=== PATIENT | female | born 1960 | race Caucasian/White ===

== ENCOUNTER 2017-03-13 15:17 | Emergency (ER) | payer OTHER ==
[~2017-03-13] VITALS: Ht 162.6 cm; Wt 51.0 kg
[2017-03-13 15:18] VITALS: BP 95/51; PULSE 79; RESP 18; TEMP 97.8; O2SAT 97
[2017-03-13] MEDS ORDERED: LEVO.075 PO (15:59)
--- NOTE | 2017-03-13 16:10 | PD ---
HPI Chief Complaint: GI Complaint Time Seen by Provider: 16:07 Travel History International Travel<30 days: No Contact w/Intl Traveler<30days: No Traveled to known affect area: No History of Present Illness HPI 56-year-old female patient with history of hypothyroidism, presents to the ER today for 2 days history of severe diarrhea, abdominal cramping pains, followed by red blood in the stools. She denies any black stools, vomiting, fevers, or other symptoms. She is not sure whether she ate something bad. She denies any recent antibiotic use or recent travel. She does not know any sick contacts. She says that she has gone at least 60 times today. Modifying Factors: None Associated Signs & Symptoms: Diarrhea, blood in the stools, abdominal cramping pains Risk Factors: None PFSH Past Medical History Thyroid Disease: Yes Tetanus Vaccination: > 5 Years Social History Alcohol Use: Yes Tobacco Use: No Substance Use: No Allergies-Medications (Allergen,Severity, Reaction): Coded Allergies: scopolamine (Verified Allergy, Severe, dizzy, 03/13/17) sulfamethoxazole (Verified Allergy, Severe, rash, 03/13/17) tetanus immune globulin (Verified Allergy, Severe, edema, 03/13/17) trimethoprim (Verified Allergy, Severe, rash, 03/13/17) Reported Meds & Prescriptions Reported Meds & Active Scripts Active Reported Synthroid (Levothyroxine Sodium) 75 Mcg Tab 75 Mcg PO DAILY Review of Systems Except as stated in HPI: all other systems reviewed are Neg Physical Exam Narrative GENERAL: Well-developed middle age female patient currently in mild distress. Awake and oriented 3. SKIN: Focused skin assessment warm/dry. HEAD: Atraumatic. Normocephalic. EYES: Pupils equal and round. No scleral icterus. No injection or drainage. ENT: No nasal bleeding or discharge. Mucous membranes pink and moist. NECK: Trachea midline. No JVD. CARDIOVASCULAR: Regular rate and rhythm. No murmur appreciated. RESPIRATORY: No accessory muscle use. Clear to auscultation. Breath sounds equal bilaterally. GASTROINTESTINAL: Abdomen soft, non-tender, nondistended. Hepatic and splenic margins not palpable. RECTAL EXAM: No masses or tenderness, stool is brown. Trace Hemoccult-positive. MUSCULOSKELETAL: No obvious deformities. No clubbing. No cyanosis. No edema. NEUROLOGICAL: Awake and alert. No obvious cranial nerve deficits. Motor grossly within normal limits. Normal speech. PSYCHIATRIC: Appropriate mood and affect; insight and judgment normal. Data Data Last Documented VS Vital Signs Date Time Temp Pulse Resp B/P (MAP) Pulse Ox O2 Delivery O2 Flow Rate FiO2 03/13/17 18:32 80 20 90/51 (64) 03/13/17 15:18 97.8 97 Room Air Orders Orders Complete Blood Count With Diff (03/13/17 16:07) Comprehensive Metabolic Panel (03/13/17 16:07) Lipase (03/13/17 16:07) Prothrombin Time / Inr (Pt) (03/13/17 16:07) Act Partial Throm Time (Ptt) (03/13/17 16:07) Type And Screen (03/13/17 16:07) Ecg Monitoring (03/13/17 16:07) Iv Access Insert/Monitor (03/13/17 16:07) Oximetry (03/13/17 16:07) Pantoprazole Inj (Protonix Inj) (03/13/17 16:15) Sodium Chloride 0.9% Flush (Ns Flush) (03/13/17 16:15) Sodium Chlor 0.9% 1000 Ml Inj (Ns 1000 M (03/13/17 16:30) Stool Wbc (Leukocytes) (03/13/17 17:20) Enteric Path (Stool) (03/13/17 17:20) Urinalysis - C+S If Indicated (03/13/17 17:42) Labs Laboratory Tests Test 03/13/17 16:00 03/13/17 17:50 White Blood Count 7.4 TH/MM3 Red Blood Count 4.69 MIL/MM3 Hemoglobin 14.3 GM/DL Hematocrit 42.8 % Mean Corpuscular Volume 91.1 FL Mean Corpuscular Hemoglobin 30.4 PG Mean Corpuscular Hemoglobin Concent 33.4 % Red Cell Distribution Width 13.5 % Platelet Count 214 TH/MM3 Mean Platelet Volume 8.4 FL Neutrophils (%) (Auto) 92.7 % Lymphocytes (%) (Auto) 3.4 % Monocytes (%) (Auto) 3.7 % Eosinophils (%) (Auto) 0.1 % Basophils (%) (Auto) 0.1 % Neutrophils # (Auto) 6.8 TH/MM3 Lymphocytes # (Auto) 0.2 TH/MM3 Monocytes # (Auto) 0.3 TH/MM3 Eosinophils # (Auto) 0.0 TH/MM3 Basophils # (Auto) 0.0 TH/MM3 CBC Comment DIFF FINAL Differential Comment Prothrombin Time 10.3 SEC Prothromb Time International Ratio 0.9 RATIO Activated Partial Thromboplast Time 25.4 SEC Blood Urea Nitrogen 15 MG/DL Creatinine 0.67 MG/DL Random Glucose 132 MG/DL Total Protein 7.5 GM/DL Albumin 4.2 GM/DL Calcium Level 9.2 MG/DL Alkaline Phosphatase 104 U/L Aspartate Amino Transf (AST/SGOT) 14 U/L Alanine Aminotransferase (ALT/SGPT) 22 U/L Total Bilirubin 0.5 MG/DL Sodium Level 138 MEQ/L Potassium Level 3.9 MEQ/L Chloride Level 105 MEQ/L Carbon Dioxide Level 25.1 MEQ/L Anion Gap 8 MEQ/L Estimat Glomerular Filtration Rate 90 ML/MIN Lipase 112 U/L Urine Color YELLOW Urine Turbidity HAZY Urine pH 5.5 Urine Specific [place] 1.024 Urine Protein 100 mg/dL Urine Glucose (UA) NEG mg/dL Urine Ketones 40 mg/dL Urine Occult Blood TRACE Urine Nitrite NEG Urine Bilirubin NEG Urine Urobilinogen LESS THAN 2.0 MG/DL Urine Leukocyte Esterase NEG Urine RBC 1 /hpf Urine WBC 3 /hpf Urine Mucus MANY /lpf Microscopic Urinalysis Comment CULT NOT INDICATED MDM Medical Decision Making Medical Screen Exam Complete: Yes Emergency Medical Condition: Yes Medical Record Reviewed: Yes Interpretation(s) Laboratory Tests Test 03/13/17 16:00 03/13/17 17:50 Neutrophils (%) (Auto) 92.7 % (16.0-70.0) Lymphocytes (%) (Auto) 3.4 % (9.0-44.0) Lymphocytes # (Auto) 0.2 TH/MM3 (1.0-4.8) Random Glucose 132 MG/DL (74-106) Aspartate Amino Transf (AST/SGOT) 14 U/L (15-37) Urine Turbidity HAZY (CLEAR) Urine Protein 100 mg/dL (NEG-TRACE) Urine Ketones 40 mg/dL (NEG) Urine Occult Blood TRACE (NEG) Urine Mucus MANY /lpf (OCC) Differential Diagnosis Diarrhea, blood in the stools: Rule out dehydration versus metabolic issues versus sepsis versus GI bleed versus colitis Narrative Course There is a trace amount of blood in the stool. Abdomen is benign and I do not suspect an acute intra-abdominal process. Her lab work did not indicate significant anemia or significant dehydration or metabolic issues. Vital signs are stable in the ER. I suspect that she has a gastroenteritis that has caused irritation and bleeding. However, other underlying acute processes causing bleeding cannot be ruled out. At this point, my plan would be to release her with close follow-up to GI doctor. We will give her Imodium. Return for any worsening in bleeding, pain, diarrhea, or new symptoms as needed. The plan has discussed with her and she states understanding. [facility] Point of Care Internal Pos. & Neg. Controls: Passed Fecal Specimen Occult Blood: Positive Diagnosis Primary Impression: Gastroenteritis Additional Impression: Gastrointestinal bleeding Med/Other Pt SpecificInfo: Prescription(s) given Scripts Loperamide (Imodium A-D) 2 Mg Capsule 2 MG PO DIRECTED Y for DIARRHEA, #20 CAP 0 Refills One capsule after each loose stool. Not to exceed 8 tablets per day. Prov: Belkys Escobar MD 03/13/17 Ondansetron Odt (Zofran Odt) 4 Mg Tab 4 MG SL Q6HR Y for Nausea/Vomiting, #7 TAB 0 Refills Prov: Belkys Escobar MD 03/13/17 Disposition: 01 DISCHARGE HOME Condition: Stable Belkys Escobar MD Mar 13, 2017 16:10
[2017-03-13] MEDS ORDERED: SODIUM CHLORIDE 0.9% FLUSH 10 ML FLUSH IVF PRN (16:15)
[2017-03-13] MEDS ORDERED: PANTOPRAZOLE SODIUM 40 MG VIAL IVP ONE (16:15)
[2017-03-13] MEDS ORDERED: SODIUM CHLOR 0.9% 1000 ML INJ 1,000 ML IV ONE (16:30)
[2017-03-13 16:35] LABS: AUTOMATED NEUTROPHIL # 6.8 TH/MM3 (1.8-7.7); BASOPHIL % 0.1 % (0.0-2.0); EOSINOPHIL % 0.1 % (0.0-4.0); HEMATOCRIT 42.8 % (35.0-46.0); HEMO FLAGS DIFF FINAL; LYMPH % 3.4 % (9.0-44.0); LYMPHOCYTE # 0.2 TH/MM3 (1.0-4.8); MEAN CELL VOLUME 91.1 FL (80.0-100.0); MEAN CORPUSCULAR HEMOGLOBIN 30.4 PG (27.0-34.0); MEAN CORPUSCULAR HGB CONC 33.4 % (32.0-36.0); MONO % 3.7 % (0.0-8.0); NEUT % 92.7 % (16.0-70.0); PLATELET COUNT 214 TH/MM3 (150-450); RED BLOOD COUNT 4.69 MIL/MM3 (4.00-5.30); RED CELL DISTRIBUTION WIDTH 13.5 % (11.6-17.2); WHITE BLOOD COUNT 7.4 TH/MM3 (4.0-11.0)
[2017-03-13 16:47] LABS: APTT (PATIENT) 25.4 SEC (24.3-30.1); INTERNATIONAL NORMALIZED RATIO 0.9 RATIO; PROTHROMBIN TIME - PATIENT 10.3 SEC (9.8-11.6)
[2017-03-13 16:59] LABS: ANION GAP 8 MEQ/L (5-15); AST (GOT) 14 U/L (15-37); BICARBONATE 25.1 MEQ/L (21.0-32.0); BLOOD UREA NITROGEN 15 MG/DL (7-18); CHLORIDE 105 MEQ/L (98-107); GLOMERULAR FILTRATION RATE 90 ML/MIN (>89); POTASSIUM 3.9 MEQ/L (3.5-5.1); SODIUM (NA) 138 MEQ/L (136-145)
[2017-03-13 17:03] LABS: ALKALINE PHOSPHATASE 104 U/L (45-117); ALT (GPT) 22 U/L (10-53); TOTAL BILIRUBIN ADULT 0.5 MG/DL (0.2-1.0)
[2017-03-13 18:21] LABS: BLOOD, URINE TRACE (NEG); COMMENT (UR) CULT NOT INDICATED; CULTURE IF INDICATED CULT NOT INDICATED; GLUCOSE,URINE NEG (NEG); KETONE, URINE 40 mg/dL (NEG); MUCUS URINE MANY /lpf (OCC); NITRITE,URINE NEG (NEG); PH, URINE 5.5 (5.0-8.5); URINE COLOR YELLOW (YELLW/STRAW)
[2017-03-13 18:32] VITALS: BP 90/51; PULSE 80; RESP 20
[2017-03-13] MEDS ORDERED: ZOFR4TAB3 SL (18:45)
[2017-03-13] MEDS ORDERED: LOPE-1 PO (18:45)
== END 2017-03-13 18:55 | disposition home or self-care (01) ==
LOC: NEPC 15:17
DX: K52.9 Noninfective gastroenteritis and colitis, unspecified (principal); K92.1 Melena; R10.9 Unspecified abdominal pain
CPT/HCPCS: 80053; 81001; 83690; 85025; 85610; 85730; 86850; 86900; 86901; 96374; 99284; C9113; J7030